=== PATIENT | female | born 1980 | race Caucasian/White ===

== ENCOUNTER → 2020-12-16 | Outpatient (CLI) | payer BC | LOC: KOH-I 08:51 | DX: G43.909 Migraine, unspecified, not intractable, without status migrainosus (principal); R94.02 Abnormal brain scan | CPT/HCPCS: 70551 ==

== ENCOUNTER → 2022-01-22 | Outpatient (CLI) | payer BC | LOC: US 09:39 | DX: R10.11 Right upper quadrant pain (principal); R11.0 Nausea; M25.519 Pain in unspecified shoulder | CPT/HCPCS: 76705 ==

== ENCOUNTER → 2022-02-08 | Outpatient (CLI) | payer BC | LOC: NM 02-01 09:00 | DX: R10.9 Unspecified abdominal pain (principal); R11.0 Nausea | CPT/HCPCS: 78227; A9537 ==

== ENCOUNTER → 2022-04-28 | Outpatient (CLI) | payer BC ==
[~2022-04-28] VITALS: Ht 162.6 cm; Wt 66.2 kg
== END ==
LOC: OPSV 07:28
DX: L03.90 Cellulitis, unspecified (principal)
CPT/HCPCS: 96365; J0875; J7060